=== PATIENT | male | born 1930 | race Caucasian/White ===

== ENCOUNTER 2016-07-16 18:54 | Emergency (ER) | payer MEDICARE ==
[~2016-07-16 18:54] MED LIST: Iopamidol 370 76% 100 ML VIAL ONE; Sodium Chloride 0.9% 100 ML BAG ONE
[2016-07-16] MEDS ORDERED: Metoclopramide HCl 10 MG/2 ML VIAL ONE (19:51)
[2016-07-16] MEDS ORDERED: Ondansetron HCl/PF 4 MG/2 ML Vial ONE (19:51)
--- NOTE | 2016-07-16 20:08 | RAD ---
PORTABLE CHEST: History: Abdominal pain. FINDINGS/IMPRESSION: The heart is mildly enlarged. Mild vascular prominence. No infiltrate or significant effusion. POS: [facility]
[2016-07-16 20:10] LABS: INR-International Normal Ratio 2.2; Prothrombin Time 24.3 SEC (12.0-14.7)
[2016-07-16 20:23] LABS: ALT (SGPT) 13 U/L (0-55); AST (SGOT) 17 U/L (5-34); Albumin 4.1 g/dL (3.4-4.8); Alkaline Phosphatase 51 U/L (40-150); Amylase 41 U/L (20-160); Anion Gap 15 mmol/L (10-20); BUN (Urea Nitrogen) 22 mg/dL (8.4-25.7); Bilirubin, Total 0.4 mg/dL (0.2-1.2); CK (CPK) 47 U/L (30-200); Calc. Creatinine Clearance 0 mL/min (70-130); Calcium 8.4 mg/dL (7.8-10.44); Carbon Dioxide 19 mmol/L (23-31); Chloride 109 mmol/L (98-107); Estimated GFR-MDRD 39; Globulin 2.7 g/dL (2.4-3.5); Glucose 137 mg/dL (83-110); Lipase 12 U/L (8-78); Potassium 3.7 mmol/L (3.5-5.1); Protein, Total 6.8 g/dL (5.8-8.1); Sodium 139 mmol/L (136-145)
[2016-07-16 20:25] LABS: Bilirubin Negative (Negative); Blood, Urine Negative (Negative); Clarity Clear (Clear); Glucose, Urine (Dipstick) Negative (Negative); Leukocyte Negative (Negative); Nitrite Negative (Negative); Protein, Urine (Dipstick) Trace mg/dL (Neg-Trace); Specific Gravity, Urine 1.015 (1.005-1.030); Urobilinogen 0.2 mg/dL (0.2-1.0); pH, Urine 6.5 (5.0-9.0)
[2016-07-16 20:28] LABS: #Basophils 0.1 thou/uL (0.0-0.2); #Lymphocytes 0.8 thou/uL (1.20-3.40); #Monocytes 0.4 thou/uL (0.11-0.59); #Neutrophils 5.2 thou/uL (1.40-6.50); %Basophils 0.8 % (0.0-1.0); %Eosinophils 0.1 % (0.0-10.0); %Monocytes 6.1 % (0.0-10.0); Hemoglobin 10.8 g/dL (14.0-18.0); MDiff Complete? YES; Mean Corpuscular HGB CONC 33.3 g/dL (32.0-36.0); Mean Corpuscular Hemoglobin 34.4 pg (27.0-31.0); Mean Corpuscular Volume 103.3 fl (80.0-94.0); Mean Platelet Volume 9.1 fL (7.4-10.4); Platelet Count 186 thou/uL (130-400); Polychromasia SLIGHT = 2-3 cells (100X) (0-2/hpf); RBC Distribution Width 12.6 % (11.5-14.5); Red Blood Cell (RBC) Count 3.13 mill/uL (4.70-6.10); White Blood Cell (WBC) Count 6.4 thou/uL (4.8-10.8)
--- NOTE | 2016-07-16 23:16 | CT ---
CT ABDOMEN AND PELVIS WITH IV CONTRAST: Technique: Multiple axial tomograms are obtained through the abdomen and pelvis with IV enhancement . Oral contrast was given. History: Abdominal pain. Fever. FINDINGS: Nodular density at the junction of the diaphragm and the anterior right lung base is probably rounde d atelectasis. This measures 1.3 cm but is indeterminate. The liver, spleen, and pancreas appear unremarkable. Patient is post cholecystectomy. Kidneys show no evidence of hydronephrosis. No evidence of ureteral calculus or obstruction. There are two cystic lesions in the upper left kidney, one measures approximately 1.0 cm and the other me asuring approximately 1.3 cm. Small bowel loops show nonspecific distention. There is a calcification which appears to represent an appendicolith in a shortened appendix. This visualized appendix while only measuring 3-4 cm length is dilated and shows a thickened wall. An 8 mm appendicolith is seen in the distal portion of this apparent appendix. There is also mural thick ening at the cecum at the origin of this apparent appendix and some inflammatory stranding. There is a small amount of free fluid in the lower abdomen and pelvis. The colon shows diverticulosis of the left colon and sigmoid. Prominent stool in the sigmoid and re ctum. Nonspecific inflammatory changes around the sigmoid could represent changes of diverticulitis , however, there is no focal area of inflammation or abscess. IMPRESSION: 1. Evidence of a shortened appendix with an appendicolith. This apparent appendix is dilated with inflammatory changes. Appendicitis cannot be excluded. 2. Small amount of free fluid in the lower abdomen and pelvis. 3. Diverticulosis of the left colon and sigmoid with nonspecific inflammatory changes is in the mes entery of the sigmoid, however, no focal area of diverticulitis or abscess identified. 4. There are two cystic lesions in the left kidney as described above. 5. There is a nodular density in the right lung base adjacent to the diaphragm which may represent rounded atelectasis although follow up is recommended. POS: [facility]
[2016-07-17] MEDS ORDERED: Piperacillin/Tazobactam 4.5 GM VIAL ONE (00:13)
[2016-07-17] MEDS ORDERED: metroNIDAZOLE 250 MG TAB ONE (00:13)
== END 2016-07-17 00:30 | disposition short-term general hospital (02) ==
LOC: MADERS 18:54
DX: R10.32 Left lower quadrant pain (principal); R10.31 Right lower quadrant pain; E11.9 Type 2 diabetes mellitus without complications; I13.0 Hypertensive heart and chronic kidney disease with heart failure and stage 1 through stage 4 chronic kidney disease, or unspecified chronic kidney disease; N18.9 Chronic kidney disease, unspecified; I50.9 Heart failure, unspecified; E78.5 Hyperlipidemia, unspecified; Z79.899 Other long term (current) drug therapy
CPT/HCPCS: 36415; 71010; 74177; 80053; 81003; 82150; 82550; 83605; 83690; 83880; 85025; 85610; 85730; 86140; 87040; 87086; 93005; 94760; 96374; 96375; J2270; J2405; J2543; J2765; J7050

== ENCOUNTER 2016-08-30 16:31 | Emergency (ER) | payer MEDICARE ==
[~2016-08-30 16:31] MED LIST changes: -Iopamidol 370 76% 100 ML VIAL ONE; +Sodium Chloride 0.9% 1,000 ML BAG ONE; -Sodium Chloride 0.9% 100 ML BAG ONE
[2016-08-30 17:25] LABS: #Basophils 0.1 thou/uL (0.0-0.2); #Eosinphils 0.1 thou/uL (0.0-0.7); #Lymphocytes 2.2 thou/uL (1.20-3.40); #Monocytes 0.8 thou/uL (0.11-0.59); #Neutrophils 3.3 thou/uL (1.40-6.50); %Eosinophils 1.2 % (0.0-10.0); %Lymphocytes 34.3 % (21.0-51.0); %Monocytes 12.4 % (0.0-10.0); %Neutrophils 51.1 % (42.0-75.0); Hemoglobin 6.8 g/dL (14.0-18.0); Mean Corpuscular HGB CONC 33.3 g/dL (32.0-36.0); Mean Corpuscular Hemoglobin 32.6 pg (27.0-31.0); Mean Corpuscular Volume 97.8 fl (80.0-94.0); Mean Platelet Volume 7.1 fL (7.4-10.4); Platelet Count 201 thou/uL (130-400); RBC Distribution Width 14.2 % (11.5-14.5); Red Blood Cell (RBC) Count 2.08 mill/uL (4.70-6.10); White Blood Cell (WBC) Count 6.5 thou/uL (4.8-10.8)
[2016-08-30 17:30] LABS: INR-International Normal Ratio 1.5; PTT 27.5 SEC (22.9-36.1); Prothrombin Time 18.3 SEC (12.0-14.7)
[2016-08-30 17:38] LABS: Hemoglobin A1c 5.5 % (4.0-6.0)
[2016-08-30 17:40] LABS: ALT (SGPT) 8 U/L (0-55); AST (SGOT) 11 U/L (5-34); Albumin 3.3 g/dL (3.4-4.8); Alkaline Phosphatase 40 U/L (40-150); Anion Gap 12 mmol/L (10-20); BUN (Urea Nitrogen) 38 mg/dL (8.4-25.7); Bilirubin, Total 0.3 mg/dL (0.2-1.2); Calc. Creatinine Clearance 0 mL/min (70-130); Calcium 8.4 mg/dL (7.8-10.44); Carbon Dioxide 22 mmol/L (23-31); Chloride 106 mmol/L (98-107); Estimated GFR-MDRD 43; Glucose 137 mg/dL (83-110); Potassium 3.8 mmol/L (3.5-5.1); Protein, Total 6.3 g/dL (5.8-8.1); Sodium 136 mmol/L (136-145)
[2016-08-30 18:28] LABS: Anion Gap 13 mmol/L (10-20); BUN (Urea Nitrogen) 37 mg/dL (8.4-25.7); Calc. Creatinine Clearance 0 mL/min (70-130); Calcium 8.2 mg/dL (7.8-10.44); Carbon Dioxide 21 mmol/L (23-31); Chloride 106 mmol/L (98-107); Estimated GFR-MDRD 45; Glucose 139 mg/dL (83-110); Potassium 3.8 mmol/L (3.5-5.1); Sodium 136 mmol/L (136-145)
[2016-08-30 18:32] LABS: CKMB 0.9 ng/mL (0-6.6); Troponin I 0.022 ng/mL (< 0.028)
--- NOTE | 2016-08-30 21:54 | RAD ---
PORTABLE AP CHEST X-RAY 08/30/16 HISTORY: Dyspnea. COMPARISON: 07/16/16 The cardiac silhouette is enlarged. The pulmonary vasculature is within normal limits. Linear densit y is seen in the left mid lung field also present on a prior study and likely related to mild scarri ng. Lungs are otherwise clear. Vascular calcification in the thoracic aorta. Chest is stable from pr ior study. IMPRESSION: Stable chest without evidence of an acute cardiopulmonary process. POS: [facility]
== END 2016-08-30 19:48 | disposition short-term general hospital (02) ==
LOC: MADERS 16:31
DX: D64.9 Anemia, unspecified (principal); E11.9 Type 2 diabetes mellitus without complications; E78.00 Pure hypercholesterolemia, unspecified; E78.5 Hyperlipidemia, unspecified; I13.0 Hypertensive heart and chronic kidney disease with heart failure and stage 1 through stage 4 chronic kidney disease, or unspecified chronic kidney disease; N18.9 Chronic kidney disease, unspecified; I50.9 Heart failure, unspecified; Z79.82 Long term (current) use of aspirin; Z79.01 Long term (current) use of anticoagulants; Z79.899 Other long term (current) drug therapy
CPT/HCPCS: 36430; 71010; 80048; 80053; 82553; 83036; 83880; 84484; 85025; 85610; 85730; 86850; 86900; 86901; 86920; 86922; 93005; 96360; 99285; P9016; 36415; J7050

== ENCOUNTER 2017-05-27 19:46 | Emergency (ER) | payer MEDICARE ==
[~2017-05-27 19:46] MED LIST changes: +Iopamidol 370 76% 100 ML VIAL ONE
[2017-05-27 20:32] LABS: #Basophils 0.1 thou/uL (0.0-0.2); #Eosinphils 0.1 thou/uL (0.0-0.7); #Lymphocytes 1.9 thou/uL (1.20-3.40); #Monocytes 1.1 thou/uL (0.11-0.59); #Neutrophils 14.3 thou/uL (1.40-6.50); %Basophils 0.5 % (0.0-1.0); %Eosinophils 0.8 % (0.0-10.0); %Lymphocytes 10.7 % (21.0-51.0); %Monocytes 6.1 % (0.0-10.0); Mean Corpuscular HGB CONC 33.5 g/dL (32.0-36.0); Mean Corpuscular Hemoglobin 33.6 pg (27.0-31.0); Mean Corpuscular Volume 100.4 fl (80.0-94.0); Mean Platelet Volume 8.7 fL (7.4-10.4); Platelet Count 193 thou/uL (130-400); RBC Distribution Width 12.2 % (11.5-14.5); Red Blood Cell (RBC) Count 3.28 mill/uL (4.70-6.10); White Blood Cell (WBC) Count 17.5 thou/uL (4.8-10.8)
[2017-05-27 20:44] LABS: INR-International Normal Ratio 1.1; PTT 32.5 SEC (22.9-36.1); Prothrombin Time 14.6 SEC (12.0-14.7)
[2017-05-27 20:52] LABS: ALT (SGPT) 13 U/L (8-55); AST (SGOT) 16 U/L (5-34); Albumin 3.8 g/dL (3.4-4.8); Alkaline Phosphatase 56 U/L (40-150); Anion Gap 16 mmol/L (10-20); BUN (Urea Nitrogen) 27 mg/dL (8.4-25.7); Bilirubin, Total 0.6 mg/dL (0.2-1.2); Calc. Creatinine Clearance 0 mL/min (70-130); Calcium 9.1 mg/dL (7.8-10.44); Carbon Dioxide 25 mmol/L (23-31); Chloride 102 mmol/L (98-107); Estimated GFR-MDRD 36; Globulin 3.6 g/dL (2.4-3.5); Glucose 156 mg/dL (83-110); Potassium 4.8 mmol/L (3.5-5.1); Protein, Total 7.4 g/dL (5.8-8.1)
[2017-05-27 20:53] LABS: Sodium 138 mmol/L (136-145)
[2017-05-27] MEDS ORDERED: Morphine 4 MG/ML VIAL ONE ×2 (21:12→23:03)
[2017-05-27 22:12] LABS: Bilirubin Negative (Negative); Blood, Urine Negative (Negative); Clarity Clear (Clear); Glucose, Urine (Dipstick) Negative (Negative); Leukocyte Trace (Negative); Nitrite Negative (Negative); Protein, Urine (Dipstick) Negative (Neg-Trace); Specific Gravity, Urine 1.015 (1.005-1.030); Urobilinogen 0.2 mg/dL (0.2-1.0)
[2017-05-27 22:16] LABS: Bacteria/HPF 2+ HPF (None Seen); RBC/HPF 0-3 HPF (0-3); Transitional Epithelial 0-3 HPF (0-3)
--- NOTE | 2017-05-27 22:35 | RAD ---
RIGHT HUMERUS TWO VIEWS: History: Injury. Comparison: None. FINDINGS: Comminuted right humeral head/neck fracture with impaction. Fracture extends to the greater tuberosit y. IMPRESSION: Mildly impacted humeral head/neck fracture. POS: [facility]
[2017-05-27] MEDS ORDERED: cefTRIAXone\\ROCEPHIN 1 GM VIAL ONE (22:36)
--- NOTE | 2017-05-27 22:38 | RAD ---
CHEST ONE VIEW: History: Injury. Comparison: 08-30-16 FINDINGS: Heart size upper limits of normal. Increasing mediastinal fat. No pneumothorax or large effusion. No focal airspace consolidation. No displaced rib fracture. Right humeral neck fracture is present. IMPRESSION: No acute intrathoracic abnormality. POS: [facility]
--- NOTE | 2017-05-27 22:49 | RAD ---
AP PELVIS ONE VIEW: History: 86-year-old male with history of pelvic pain following an injury. FINDINGS: There is a compression screw stabilizing a proximal right femur and femoral neck. There is a moderate ly displaced fracture through the right acetabulum and right upper ischium. The left hip appears unre markable. The pubis region appears unremarkable. IMPRESSION: Displaced fracture involving the right acetabulum and right medial ischium. Compression screw device stabilizes the right femur. POS: [facility]
--- NOTE | 2017-05-27 22:51 | RAD ---
RIGHT HIP TWO VIEWS: History: 86-year-old male with right hip pain following injury. FINDINGS: There is a displaced vertically oriented fracture involving the right acetabulum, extending into the medial ischium. The right femur appears intact stabilized with compression screw. IMPRESSION: Displaced vertically oriented fracture through the right acetabulum and right ischium. Intact right f emur stabilized with compression screw. POS: [facility]
--- NOTE | 2017-05-28 07:14 | CT ---
CHEST AND ABDOMEN AND PELVIC CT SCAN WITH IV CONTRAST THORACIC SPINE CT WITH IV CONTRAST LIMITED LUMBAR SPINE CT SCAN WITH IV CONTRAST LIMITED: Date: 05/27/17 HISTORY: Fall 4 hours ago, with injury. FINDINGS: CHEST, ABDOMEN, AND PELVIC CT SCAN WITH IV CONTRAST: There is a comminuted fracture of the right humeral head and neck. There are some scattered chronic lung changes with cardiomegaly. No pneumothorax or pleural effusion. No mediastinal hematoma. The aorta appears unremarkable. 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 Status post cholecystectomy. The liver, spleen, pancreas, and adrenal glands are unremarkable. Small hiatal hernia. Small renal cysts. No significant free intraperitoneal fluid. In the pelvis, there is a comminuted, displaced, somewhat vertically oriented fracture involving the right acetabulum anteriorly and posteriorly, and extending into the right ischium and into the right ilium bone. There is some displacement. No dislocation. Compression screw stabilizes the right femur. There is evidence for extraperitoneal hematoma in the right pelvis. There is sigmoid colon diverticu losis without diverticulitis. IMPRESSION: 1. Comminuted right humeral neck fracture. 2. Extensively comminuted, displaced fractures of right acetabulum, both anteriorly and posteriorly, with extension superiorly into the ischium as well as the right ilium. 3. No other significant acute post-traumatic process in the chest, abdomen, or pelvis. THORACIC SPINE CT SCAN WITH IV CONTRAST LIMITED: IMPRESSION: Extensive multilevel thoracic spondylosis without acute thoracic spine fracture or dislocation. 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 No evidence for acute fract ure or dislocation. POS: [facility]
== END 2017-05-28 00:30 | disposition short-term general hospital (02) ==
LOC: MADERS 19:46
DX: S32.82XA Multiple fractures of pelvis without disruption of pelvic ring, initial encounter for closed fracture (principal); I13.0 Hypertensive heart and chronic kidney disease with heart failure and stage 1 through stage 4 chronic kidney disease, or unspecified chronic kidney disease; I50.9 Heart failure, unspecified; E11.9 Type 2 diabetes mellitus without complications; E78.5 Hyperlipidemia, unspecified; N18.9 Chronic kidney disease, unspecified; Z87.891 Personal history of nicotine dependence; Z79.899 Other long term (current) drug therapy; Z79.82 Long term (current) use of aspirin; W17.89XA Other fall from one level to another, initial encounter
CPT/HCPCS: 36416; 51702; 71010; 71260; 72170; 74177; 80053; 81003; 81015; 85025; 85610; 85730; 87086; 93005; 96361; 96374; 96375; 96376; J0696; J2270; J7050